=== PATIENT | female | born 1995 | race Caucasian/White ===

== ENCOUNTER 2021-10-08 16:25 | Emergency (ER) | payer SELFPAY ==
[2021-10-08 16:37] VITALS: BP 112/66; PULSE 128; TEMP 98.2; BMI 19.8
[2021-10-08] MEDS ORDERED: SODIUM CHLORIDE 1,000 ML IV STA (18:29)
[2021-10-08] MEDS ORDERED: ONDANSETRON 4 MG/2 ML VIAL IVPUSH ONE (18:30)
[2021-10-08] MEDS ORDERED: FAMOTIDINE 20 MG/50 ML IVPB 20 MG/50 ML MG IVPB ONE ×2 (18:47→19:34)
[2021-10-08] MEDS ORDERED: ONDANSETRON 4 MG/2 ML VIAL ONE (19:34)
[2021-10-08 20:46] LABS: BASO % 0.2 % (0-2.0); EOS % 0.2 % (0-4.5); HEMATOCRIT 31.2 % (32.4-45.2); HEMOGLOBIN 10.7 GM/dL (10.7-15.3); LYMPH % 6.3 % (8-40); MCHC 34.3 g/dl (32.0-36.0); MEAN CELL VOLUME 75.9 fl (80-96); MEAN PLT VOLUME 8.3 fl (7.5-11.1); MONO % 6.9 % (3.8-10.2); NEUT % 86.4 % (42.8-82.8); PLATELET COUNT 235 10^3/uL (134-434); RBC 4.11 M/mm3 (3.60-5.2); RDW 15.2 % (11.6-15.6); WHITE BLOOD COUNT 9.7 K/mm3 (4.0-10.0)
[2021-10-08 20:51] LABS: PH,URINE 5.5 (5.0-8.0); URINE APPEARANCE CLEAR; URINE BILIRUBIN NEGATIVE (NEGATIVE); URINE COLOR YELLOW; URINE GLUCOSE (UA) NEGATIVE (NEGATIVE); URINE KETONE 3+ (NEGATIVE); URINE LEUK ESTERASE NEGATIVE (NEGATIVE); URINE NITRITE NEGATIVE (NEGATIVE); URINE PROTEIN TRACE (NEGATIVE); URINE UROBILINOGEN 0.2 mg/dL (0.2-1.0)
[2021-10-08 21:07] LABS: ALBUMIN 2.9 g/dl (3.4-5.0); BLOOD UREA NITROGEN 15.1 mg/dL (7-18)
[2021-10-08 21:10] LABS: CREATININE 0.6 mg/dL (0.55-1.3)
[2021-10-08 21:12] LABS: BILIRUBIN,TOTAL 0.7 mg/dL (0.2-1)
[2021-10-08] MEDS ORDERED: SODIUM CHLORIDE 500 ML IV ONE ×2 (22:30)
== END 2021-10-09 00:30 | disposition home or self-care (01) ==
LOC: JER 16:25
PROC: 3E033GC Introduction of Other Therapeutic Substance into Peripheral Vein, Percutaneous Approach (ICD-10-PCS; principal; 2021-10-08)
DX: O99.612 Diseases of the digestive system complicating pregnancy, second trimester (principal); K52.9 Noninfective gastroenteritis and colitis, unspecified; Z3A.24 24 weeks gestation of pregnancy
CPT/HCPCS: 36415; 76815; 76830-TC; 80053; 81003; 83690; 85025; 87086; 99284-25

== ENCOUNTER 2022-04-22 16:20 | Emergency (ER) | payer OTHER ==
[2022-04-22 16:32] VITALS: BP 106/74; PULSE 87; RESP 18; TEMP 97; BMI 19.8
[2022-04-22 17:42] LABS: HCG,QUALITATIVE URINE Negative
[2022-04-22] MEDS ORDERED: ACETAMINOPHEN 500 MG TABLET (FP) ONE (17:44)
[2022-04-22] MEDS ORDERED: ACETAMINOPHEN 500 MG TABLET (FP) PO ONE (17:48)
[2022-04-22 17:50] LABS: EPI CELLS 26 /uL (0-25.1); HYALINE CASTS 0 /uL (0-3.1); URINE APPEARANCE CLEAR; URINE BACTERIA 617 /uL (0-1359); URINE BILIRUBIN NEGATIVE (NEGATIVE); URINE COLOR YELLOW; URINE GLUCOSE (UA) NEGATIVE (NEGATIVE); URINE KETONE TRACE (NEGATIVE); URINE LEUK ESTERASE 1+ (NEGATIVE); URINE NITRITE NEGATIVE (NEGATIVE); URINE PROTEIN NEGATIVE (NEGATIVE); URINE RBC 18 /uL (0-23.9); URINE WBC 39 /uL (0-25.8)
== END 2022-04-22 20:27 | disposition home or self-care (01) ==
LOC: JER 16:20
DX: N94.6 Dysmenorrhea, unspecified (principal)
CPT/HCPCS: 76830-TC; 81003; 84703; 87077; 87086; 99284-25

== ENCOUNTER 2022-12-27 11:47 | Emergency (ER) | payer OTHER ==
[2022-12-27] MEDS ORDERED: SODIUM CHLORIDE 1,000 ML IV STA (12:06)
[2022-12-27 12:08] VITALS: BMI 32.8
[2022-12-27 13:07] LABS: BASO % 0.4 % (0-2.0); HEMATOCRIT 25.4 % (32.4-45.2); HEMOGLOBIN 8.5 GM/dL (10.7-15.3); LYMPH % 18.4 % (8-40); MCH 22.1 pg (25.7-33.7); MCHC 33.4 g/dl (32.0-36.0); MEAN CELL VOLUME 66.3 fl (80-96); MEAN PLT VOLUME 8.8 fl (7.5-11.1); MONO % 8.2 % (3.8-10.2); PLATELET COUNT 204 10^3/uL (134-434); RBC 3.84 M/mm3 (3.60-5.2); RDW 19.8 % (11.6-15.6); WHITE BLOOD COUNT 12.9 K/mm3 (4.0-10.0)
[2022-12-27 13:25] LABS: POTASSIUM 3.6 mmol/L (3.5-5.1)
[2022-12-27 13:27] LABS: ALBUMIN 2.6 g/dl (3.4-5.0); BLOOD UREA NITROGEN 7.1 mg/dL (7-18); CALCIUM 8.5 mg/dL (8.5-10.1)
[2022-12-27 13:31] LABS: CREATININE 0.5 mg/dL (0.55-1.3)
[2022-12-27 13:32] LABS: BILIRUBIN,TOTAL 0.3 mg/dL (0.2-1); TOT PROT 6.5 g/dl (6.4-8.2)
[2022-12-27 16:59] VITALS: TEMP 98.4
[2022-12-27] MEDS ORDERED: DEXTROSE 5%-LACTATED RINGERS 1,000 ML IV ONE (17:05)
[2022-12-27] MEDS ORDERED: DEXTROSE 5%-LACTATED RINGERS 500 ML IV ONE ×2 (17:05)
[2022-12-27 18:44] VITALS: BP 109/68; PULSE 92; RESP 17
== END 2022-12-27 21:50 | disposition home or self-care (01) ==
LOC: JER 11:47
PROC: 3E033GC Introduction of Other Therapeutic Substance into Peripheral Vein, Percutaneous Approach (ICD-10-PCS; principal; 2022-12-27)
PROC: 3E0337Z Introduction of Electrolytic and Water Balance Substance into Peripheral Vein, Percutaneous Approach (ICD-10-PCS; 2022-12-27)
DX: O26.813 Pregnancy related exhaustion and fatigue, third trimester (principal); M54.50 Low back pain, unspecified; R55 Syncope and collapse; R51.9 Headache, unspecified; Z3A.37 37 weeks gestation of pregnancy
CPT/HCPCS: 36415; 70450-TC; 76815-TC; 76819-TC; 80053; 84484; 85025; 86850; 86900; 86901; 93005; 93010; 99285-25